=== PATIENT | male | born 1965 | race Caucasian/White ===

== ENCOUNTER 2022-08-05 06:10 | Day surgery (SDC) | payer OTHER, SELFPAY ==
--- NOTE | 2022-08-04 19:12 | W.ANESPRE ---
General Info Date of Service Date Performed: 08/05/22 Height: 5 ft 11 in Weight: 99.79 kg Body Mass Index (BMI): 30.7 Surgical Procedure: Operation Date: 08/05/22 07:40 Proposed Procedure Side Surgeon p Cholecystectomy Laparoscopic Janelle Serrano MD Meds Allergies and Home Medications Allergies Allergy/AdvReac Type Severity Reaction Status Date / Time No Known Allergies Allergy Unverified 08/05/22 06:50 Home Medication Medication Instructions Recorded acyclovir 200 mg capsule 200 mg PO DAILY PRN 07/24/22 celecoxib 200 mg capsule 200 mg PO DAILY 07/24/22 fluticasone furoate 50 1 - 2 inh inhalation DAILY 07/24/22 mcg/actuation blister powder for inhalation loratadine 10 mg tablet (Allergy 10 mg PO DAILY 07/24/22 Relief (loratadine)) omeprazole 20 mg capsule,delayed 20 mg PO DAILY 07/24/22 release tamsulosin 0.4 mg capsule 0.4 mg PO DAILY 07/24/22 rosuvastatin 10 mg tablet 10 mg PO DAILY 07/27/22 Current Visit Medications: Current Medications Generic Name Dose Route Start Last Admin Trade Name Freq PRN Reason Stop Dose Admin Acetaminophen 1,000 mg 08/05/22 06:00 Acetaminophen 500 Mg Tab PO 09/03/22 23:59 PREOP LUANA Celecoxib 200 mg 08/05/22 06:00 Celecoxib 200 Mg Cap PO 09/03/22 23:59 PREOP LUANA Gabapentin 600 mg 08/05/22 06:00 Gabapentin 300 Mg Cap PO 09/03/22 23:59 PREOP LUANA Ringer's Solution 1,000 mls @ 80 mls/hr 08/05/22 06:00 IV 09/03/22 23:59 INFUSION [facility] Ampicillin Sodium/Sulbactam 100 mls @ 200 mls/hr 08/05/22 06:00 Sodium 3 gm/ Sodium Chloride IVPB 08/05/22 18:00 PREOP [facility] IV Miscellaneous Supplies 1 each 08/05/22 06:00 Iv Access IV 09/03/22 23:59 DIRECTED LUANA Sodium Chloride 0 ml 08/05/22 06:00 Normal Saline Flush 10 Ml Syr IV 09/03/22 23:59 PRN PRN Sodium Chloride 0 ml 08/05/22 06:00 Normal Saline 10 Ml Vial IJ 06/22/23 23:59 DIRECTED PRN Sterile Water 0 ml 08/05/22 06:00 Water,Injection,Sterile 10 Ml Vial IJ 09/03/22 23:59 DIRECTED PRN PFSH Active Problems Active Problems: Problem Status Onset Code Right upper quadrant abdominal pain R10.11 REED (obstructive sleep apnea) G47.33 Biliary colic K80.50 Medical History Medical History (Updated 08/04/22 @ 10:50 by Jose Enrique Boudreaux) Allergic rhinitis Degenerative arthritis of spine Hyperlipidemia Knee pain Polyp, colonic PTSD (post-traumatic stress disorder) Per pt. states unexpected loud noises can be a potential trigger. Surgical History Surgical History History of colonoscopy (~06/17/22) 06/17/22 hyperplastic rectal polyp S/P meniscectomy Status post excision of lipoma Tobacco Smoking/Tobacco Use Status: Current-Occasional Tobacco Type: cigars Per week: 1 Smokeless tobacco user: other Alcohol Alcohol Intake: current Alcohol intake frequency: 0-2 drinks per day Substance Use Substance use: Never Substance use type: does not use Vital Signs and Lab Results Vital Signs Most Recent Vital Signs in EMR: Temp Pulse Resp BP Pulse Ox 35.6 C L 64 18 145/88 H 96 08/05/22 06:31 08/05/22 06:31 08/05/22 06:31 08/05/22 06:31 08/05/22 06:31 Lab Results Blood Type / Crossmatch: No Data to Display Complete Blood Count: No Data to Display Complete Metabolic Panel: No Data to Display Liver Function Panel: No Data to Display Coagulation Panel: No Data to Display Cardiac Panel: No Data to Display Arterial Blood Gas: No Data to Display Venous Blood Gas: No Data to Display Pancreas Panel: No Data to Display Thyroid Panel: No Data to Display Infectious Disease: No Data to Display Blood Cultures: No Data to Display Toxicology Panel: No Data to Display Anesthesia Assessment and Plan Anesthesia History Personal History: No History of Anesthesia Complications Family History: No Family History of Anesthesia Complications Exercise Tolerance Exercise Tolerance: Metabolic Equivalents>4 Cardiac & Pulmonary Exam Cardiac Exam: Normal S1/S2 Heart Sounds Pulmonary Exam: Clear Bilateral Breath Sounds Implantable Cardiac Device Does patient have a Pacemaker or an ICD?: No Airway Exam Known Difficult Airway: No Mallampati Class: 2 Mouth Opening: Normal (> 3cm) Thyromental Distance: Greater than 3 cm Neck Range of Motion: Full ROM Neck Circumference: Normal Teeth Condition: Normal Dentition ASA Classification ASA Score: ASA 2 Emergency Case?: No NPO Status NPO Status: NPO Clears >2 hours, Solids >8 hours Anesthesia Plan Resuscitation Status: Full Code Anesthesia Technique: General Anesthesia Airway Planned: Endotracheal Tube Monitors Used: Standard Monitors Preoperative Comments:: 57 yo male with biliary colic for lap abbey. Sig PMHx: REED, PTSD (loud noises trigger), occ cigar/etoh. Plan: GAETT, preop cocktail ordered by surgeon.
[2022-08-05] VITALS (12 sets, daily range): BP systolic 112–158; BP diastolic 74–98; PULSE 53–64; RESP 15–18; TEMP 35.6–36.8; O2SAT 92–96; BMI 30.7
[2022-08-05] MEDS: Gabapentin 300 MG CAP 600 MG PO (06:29)
[2022-08-05] MEDS: Celecoxib 200 MG CAP PO (06:29)
[2022-08-05] MEDS: Acetaminophen 500 MG TAB 1000 MG PO (06:29)
--- NOTE | 2022-08-05 06:45 | W.PM.PROGNOT ---
Date of Service Date of service: 08/05/22 Time of Service: 06:45 Assessment and Plan Assessment and plan (1) Biliary colic: Status: Acute Assessment and plan: I reviewed the risks, benefits and complications of the procedure again with the patient and his . He had a good understanding of the risks and the complications. Risks, benefits, complications were reviewed with the patient in the office. Complications include but are not limited to bleeding, infection, injury to stomach, small bowel and large bowel, injury to the pancreas, injury to the common bile duct necessitating drainage and referral to tertiary center for repair, bile leak, adverse reactions to the medications, complications of intubation including a sore throat or injury to the uvula, ID, stroke and even . Questions were entertained and answered to her satisfaction and she wished to proceed. No guarantees were given or implied. The patient wished to proceed with laparoscopic cholecystectomy. Subjective Subjective Interval history since last seen: I saw Rc in the same-day surgery area today. He is scheduled for a laparoscopic cholecystectomy. There has been no changes in his health since I saw him in the office. He is here with his Connie. Exam Const General: cooperative, comfortable and no acute distress Nutritional Appearance: overweight Orientation: alert and oriented x3 HENMT Head: normocephalic and atraumatic Resp Effort & Inspection: normal respiratory effort Cardio Rate: regular rate Rhythm: regular rhythm GI Inspection: normal to inspection Palpation: soft and nontender Objective Last Vital Signs Temp 96.1 F L 08/05/22 06:31 Pulse 64 08/05/22 06:31 Resp 18 08/05/22 06:31 BP 145/88 H 08/05/22 06:31 Pulse Ox 96 08/05/22 06:31 Time Spent with Patient Time Spent with Patient: <25 minutes Time was spent: other
[2022-08-05] MEDS: Lactated Ringers 1,000 ML 80 ML IV (06:46)
--- NOTE | 2022-08-05 06:49 | W.PM.OP ---
Date of service: 08/05/22 Time of Service: 08:22 Operative Note Operative Note DATE OF PROCEDURE: 08/05/22 PRE-OP DIAGNOSIS: Biliary Colic POST-OP DIAGNOSIS: same PROCEDURE: Laparoscopic Cholecystectomy SURGEON: Janelle Serrnao TABLE TENDER SLUDGE: Ryan Guaman ANESTHESIA TYPE: Local By Surgeon and General LMA/ETT Refer to Anesthesia Record PATHOLOGY: other (Gallbladder) COMPLICATIONS: None Patient was transported to: PACU Patient's condition: stable Indications: Mr. Rose is a very pleasant 57-year-old gentleman with a history and symptoms consistent with biliary colic.? We reviewed the anatomy of the biliary system as well as the pathophysiology of biliary colic.? We used a pamphlet with pictures to describe the surgery in detail including all of the possible complications.? Risks, benefits, complications were reviewed with the patient in the office.? Complications include but are not limited to bleeding, infection, injury to stomach, small bowel and large bowel, injury to the pancreas, injury to the common bile duct necessitating drainage and referral to tertiary center for repair, bile leak, adverse reactions to the medications, complications of intubation including a sore throat or injury to the uvula, IA, stroke and even .? 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 Questions were entertained and answered to his satisfaction.? He seemed to have a good understanding of the procedure as well as the possible complications? and he wished to proceed.? No guarantees were given or implied. Findings: Normal appearing Gallbladder Procedure Description: After informed consent was obtained the patient was brought to the operating room, placed in a supine position and monitors were applied. SCDs were applied to her lower extremities and he was placed under general anesthesia and intubated without difficulty. The abdomen was then prepped and draped in a sterile fashion using ChloraPrep. At this point a timeout was done and the patient's name, date of , procedure type, allergies to medications, metal in her body, antibiotic and DVT prophylaxis, and fire risk was assessed. Next 0.25% Bupivocaine was injected just above the umbilicus into the dermis and subcutaneous tissue. A 5 mm incision was made with an 11 blade. The skin next to the incision was grasped with penetrating towel clamps and while pulling up on the skin a 5 mm port was placed under direct visualization. The abdomen was insuflated. The bowel and mesentary was inspected for injury. No injury was noted. Next 3 more ports were placed. A 12 mm port was placed in the subxiphoid area and two 5 mm ports were placed in the right upper quadrant. The liver was inspected and looked normal. The patient's bed was then turned to the left and her head was brought up. The gallbladder was grasped at the body and pushed towards the right shoulder, this allowed me to visualize the neck of the gallbladder. The neck was grasped and pulled towards the right flank and down allowing me to visualize the lymph node. Using a [place] dissector with cautery the lymph node was gently dissected away from the tissues and the fatty tissue was also dissected away. The cystic duct was identified it was normal in size. The duct was dissected 360 degrees using the [place] dissector in order for me to visualize its entrance into the gallbladder. Liver was noted behind it. There were no other structures right behind. Critical view was achieved. 3 clips were placed one proximal and 2 distal and the cystic duct was cut. The cystic artery was then identified and dissected 360 degrees. It was located just medial to the cystic duct. It was visualized going into the gallbladder. Once dissected 3 more clips were placed one proximal and 2 distal and the artery was cut. Using the hook dissector the gallbladder was then dissected away from the liver bed and placed into an Endo Catch bag and pulled through the 12 mm port site. The 12 mm port was placed back into the abdomen under direct visualization. The liver bed was inspected. There was a small amount of bleeding was noted. The liver was cauterized. The abdomen was then irrigated with a liter of normal saline until the effluent was clear. Once all the fluid was suctioned out, the 12 mm and the 2 right upper quadrant ports were removed under direct visualization and no bleeding was noted from the fascia. The abdomen was deflated completely and lastly the umbilical port was removed. The skin was cleaned. The 12 mm port site fascia was closed with 0-vicryl. The dermis off all 4 incisions were closed with 4-0 Vicryl. The skin was dried and skin affix was applied over the closed incisions. Needle, instrument and sponge counts were correct at the end of the case. At this point the patient was woken up, extubated and taken back to recovery in stable condition. There were no immediate complications.
--- NOTE | 2022-08-05 06:50 | PDOC.DSDIS_ITS ---
Date of service: 08/05/22 Time of Service: 10:52 Discharge Plan Disposition Patient Disposition: Home Condition: Stable Discharge Details Reason For Visit: Laparoscopic Cholecystectomy Attending Provider: Janelle Serrano Primary Care Provider: Liss Short Home Meds and New Rx's Prescriptions: New tramadol 50 mg tablet 50 mg PO Q6H PRNQty: 14 0RF Continued acyclovir 200 mg capsule 200 mg PO DAILY PRN celecoxib 200 mg capsule 200 mg PO DAILY fluticasone furoate 50 mcg/actuation blister with device 1 - 2 inh inhalation DAILY loratadine [Allergy Relief (loratadine)] 10 mg tablet 10 mg PO DAILY omeprazole 20 mg capsule,delayed release(DR/EC) 20 mg PO DAILY tamsulosin 0.4 mg capsule 0.4 mg PO DAILY rosuvastatin 10 mg tablet 10 mg PO DAILY Rx Instructions: 5mg every other day - per pt Discharge Instructions Instructions: Laparoscopic Cholecystectomy (DC) Additional Instructions: Activity at Home after surgery: 1. Make sure you walk outside at least 4 times per day 2. You should be able to climb a flight of stairs 3. No driving while in pain or taking pain medications 4. No strenuous activity or heavy lifting for 2 weeks (laparoscopic surgery) Diet, Nutrition, & wound healin. Avoid alcohol until after you are recovered from your surgery 2. Make sure to eat plenty of lean protein (meat, fish, eggs, cottage cheese, beans) 3. Eat a variety of fruits and vegetables. Eat plenty of high fiber foods to avoid constipation. 4. Drink plenty of liquids to stay hydrated and avoid constipation Pain Medications: 1. Tylenol 650mg every 6 hours as needed and Ibuprofen 600 mg every 6 hours as needed. You may alternate between the 2 medications every 3 hours 2. If a narcotic has been prescribed take as directed only for breakthrough pain For Constipation: 1. Take Milk of Magnesia or MiraLax as needed for constipation Other: 1. You may shower daily. Do not scrub the incisions 2. Do not soak the incisions for 1 week 3. You may alternate ice and heat as needed for pain and swelling Wound Care: 1. Keep the incisions clean and dry Please call our office if you develop: 1. Fevers >101.5 2. Nausea or Vomiting 3. Worsening pain 4. Redness and thick discharge from the wounds If after hours please call the Hospital at and ask to speak to the on-call surgeon Stand Alone Forms: Anesthesia Discharge InstNeela Mann (DSU) Referrals: Janelle Serrano MD [ [facility] STAFF PHYSICIAN] - Activity:: as above Shower/Bathe:: 24 hours Diet:: low fat Discharge Orders Discharge Orders: Discharge Order (Routine); Ordered 08/05/22 Ordered By: Janelle Serrano DS: Diagnosis Discharge Diagnosis (1) Biliary colic: Status: Acute Asessment and Plan: The patient is doing well post-op from their Laparoscopic Cholecystectomy surgery.? They are having no nausea or vomiting. They are tolerating liquids and a snack. The pt is not having any chest pain or SOB.? Their pain is adequately controlled. They have been able to urinate.? ?HEENT:? no eye pain/drainage/redness/swelling. Mild sore throat ?Cardio- NSR, no chest pain, BP stable- see VS record ?Pulm: no sob or productive cough. No hemoptysis ?Incision- dressing is c/d/i w/ no excessive bleeding or drainage ?I discussed with the patient the findings at the time of surgery and the patient?s progress. ?We reviewed expectations at home; what the patient could expect for recovery time, and in the post-operative period.? We discussed the importance of walking to avoid blood clots and pneumonia.? We discussed and reviewed the patient's post-operative wound care and dressing needs.?? We reviewed their step-de la garza pain management plan, Rx called to the pharmacy of their choice.? We reviewed activity and limitations-see discharge instructions. We reviewed warning signs, and when to seek medical attention- see d/c instructions.?? Patient was given a postoperative follow-up appointment. Patient verbalized understanding of their postoperative instructions, how do to take care of themselves and their incision, and the pain management plan. Please see discharge instructions.?
--- NOTE | 2022-08-05 06:52 | W.ANESPRE ---
General Info Date of Service Date Performed: 08/05/22 Height: 5 ft 11 in Weight: 100 kg Body Mass Index (BMI): 30.7 Surgical Procedure: Operation Date: 08/05/22 07:40 Proposed Procedure Side Surgeon p Cholecystectomy Laparoscopic Janelle Serrano MD Meds Allergies and Home Medications Allergies Allergy/AdvReac Type Severity Reaction Status Date / Time No Known Allergies Allergy Unverified 08/05/22 06:50 Home Medication Medication Instructions Recorded acyclovir 200 mg capsule 200 mg PO DAILY PRN 07/24/22 celecoxib 200 mg capsule 200 mg PO DAILY 07/24/22 fluticasone furoate 50 1 - 2 inh inhalation DAILY 07/24/22 mcg/actuation blister powder for inhalation loratadine 10 mg tablet (Allergy 10 mg PO DAILY 07/24/22 Relief (loratadine)) omeprazole 20 mg capsule,delayed 20 mg PO DAILY 07/24/22 release tamsulosin 0.4 mg capsule 0.4 mg PO DAILY 07/24/22 rosuvastatin 10 mg tablet 10 mg PO DAILY 07/27/22 Current Visit Medications: Current Medications Generic Name Dose Route Start Last Admin Trade Name Freq PRN Reason Stop Dose Admin Acetaminophen 1,000 mg 08/05/22 06:00 08/05/22 06:29 Acetaminophen 500 Mg Tab PO 09/03/22 23:59 1,000 mg PREOP LUANA Administration Celecoxib 200 mg 08/05/22 06:00 08/05/22 06:29 Celecoxib 200 Mg Cap PO 09/03/22 23:59 200 mg PREOP LUANA Administration Gabapentin 600 mg 08/05/22 06:00 08/05/22 06:29 Gabapentin 300 Mg Cap PO 09/03/22 23:59 600 mg PREOP LUANA Administration Ringer's Solution 1,000 mls @ 80 mls/hr 08/05/22 06:00 08/05/22 06:46 IV 09/03/22 23:59 80 mls/hr INFUSION LUANA Administration Ampicillin Sodium/Sulbactam 100 mls @ 200 mls/hr 08/05/22 06:00 Sodium 3 gm/ Sodium Chloride IVPB 08/05/22 18:00 PREOP LUANA IV Miscellaneous Supplies 1 each 08/05/22 06:00 Iv Access IV 09/03/22 23:59 DIRECTED LUANA Sodium Chloride 0 ml 08/05/22 06:00 Normal Saline Flush 10 Ml Syr IV 09/03/22 23:59 PRN PRN Sodium Chloride 0 ml 08/05/22 06:00 Normal Saline 10 Ml Vial IJ 09/03/22 23:59 DIRECTED PRN Sterile Water 0 ml 08/05/22 06:00 Water,Injection,Sterile 10 Ml Vial IJ 09/03/22 23:59 DIRECTED PRN PFSH Active Problems Active Problems: Problem Status Onset Code Right upper quadrant abdominal pain R10.11 REED (obstructive sleep apnea) G47.33 Biliary colic K80.50 Medical History Medical History Allergic rhinitis Degenerative arthritis of spine Hyperlipidemia Knee pain Polyp, colonic PTSD (post-traumatic stress disorder) Per pt. states unexpected loud noises can be a potential trigger. Surgical History Surgical History History of colonoscopy (~06/17/22) 06/17/22 hyperplastic rectal polyp S/P meniscectomy Status post excision of lipoma Tobacco Smoking/Tobacco Use Status: Current-Occasional Tobacco Type: cigars Per week: 1 Smokeless tobacco user: other Alcohol Alcohol Intake: current Alcohol intake frequency: 0-2 drinks per day Substance Use Substance use: Never Substance use type: does not use Vital Signs and Lab Results Vital Signs Most Recent Vital Signs in EMR: Most Recent Vital Signs Temp Pulse Resp BP Pulse Ox 35.6 C L 64 18 145/88 H 96 08/05/22 06:31 08/05/22 06:31 08/05/22 06:31 08/05/22 06:31 08/05/22 06:31 Lab Results Blood Type / Crossmatch: No Data to Display Complete Blood Count: No Data to Display Complete Metabolic Panel: No Data to Display Liver Function Panel: No Data to Display Coagulation Panel: No Data to Display Cardiac Panel: No Data to Display Arterial Blood Gas: No Data to Display Venous Blood Gas: No Data to Display Pancreas Panel: No Data to Display Thyroid Panel: No Data to Display Infectious Disease: No Data to Display Blood Cultures: No Data to Display Toxicology Panel: No Data to Display Anesthesia Assessment and Plan Anesthesia History Personal History: No History of Anesthesia Complications Family History: No Family History of Anesthesia Complications Implantable Cardiac Device Does patient have a Pacemaker or an ICD?: No
[2022-08-05] MEDS: AMPICILLIN/SULBACTAM 3 GM in Normal Saline 100 ML IVPB (07:35)
[2022-08-05] MEDS: Bupivacaine 0.25% Pres-Free 30 ML VIAL (08:00)
--- NOTE | 2022-08-05 08:07 | GB_PTH ---
PATIENT: Rc Rose LOC: [facility] U#:[id number] AGE/SX: 57/M ROOM: RE08/05/[address]: Janelle Serrano MD : 1965 BED: DIS: 08/05/2022 SPEC #: [id number] RECD: 08/05/22 12:36 STATUS: PETRA REMary #: [id number] MARLEY: 08/05/22 08:[address]: Janelle Serrano DEPT: Surgical Specimen RECD BY: Evelin Farooq ENTERED: 08/05/22 12:37 SP TYPE: GB OTHR DR: Liss Short Tissues: 1 - GALLBLADDER Procedures: GROSS AND MICRO LEVEL 3 Comments: [id number]
[2022-08-05] MEDS: Normal Saline 10 ML VIAL IJ (09:09)
[2022-08-05] MEDS: HYDROmorphone 2 MG/ML SYR IVP ×2 (09:09→09:19)
--- NOTE | 2022-08-05 09:13 | W.ANESPOSTOP ---
Postoperative Evaluation Date, Time and Location Date Performed: 08/05/22 Time Performed: 09:14 Patient Location: PACU Vital Signs Most Recent Imported Vital Signs: Most Recent Vital Signs Temp Pulse Resp BP Pulse Ox 36.7 C 60 16 132/88 93 08/05/22 08:45 08/05/22 08:45 08/05/22 08:45 08/05/22 08:45 08/05/22 08:45 Pain Score Most Recent Pain Score: Most Recent Pain Score Pain Level 2 08/05/22 08:45 Assessment Mental Status: Awake (Alert & Oriented to Patient Baseline) Airway and Respiratory Function: Patent airway with normal (patient baseline) respiratory exam Cardiovascular Function: Hemodynamically Stable Hydration Status: Adequately Hydrated Nausea & Vomiting: No Nausea or Vomiting Pain: Pain is tolerable per patient Peripheral Nerve Block: Patient did not receive a nerve block
[2022-08-05] MEDS: traMADol 50 MG TAB PO (10:32)
== END 2022-08-05 11:00 | disposition home or self-care (01) ==
PROVIDERS: PCP Nurse Practitioner Adult Health; Visit Provider Surgery
PROC: 0FT44ZZ Resection of Gallbladder, Percutaneous Endoscopic Approach (ICD-10-PCS; CPT 47562; principal; 2022-08-05 07:30)
DX: K80.44 Calculus of bile duct with chronic cholecystitis without obstruction (principal)
CPT/HCPCS: 47562; 88304; J0295; J1100; J1170; J2001; J2405; J2704; J3475

== ENCOUNTER 2024-11-20 10:04 | Outpatient (CLI) | payer OTHER, SELFPAY ==
--- NOTE | 2024-11-20 09:00 | DI.RAD_ITS ---
Exam(s) XR KNEE RT 4V AP,LAT,ROSEMARY,PAT EXAM: XR KNEE RT 4V AP,LAT,ROSEMARY,PAT CLINICAL HISTORY: RIGHT KNEE PAIN. TECHNIQUE: 2D digital imaging was performed. Three views. COMPARISON: No exams were available for comparison FINDINGS: BONES: No acute fracture is present. No bony destructive lesion is seen. JOINTS: There is severe narrowing of the lateral femoral tibial joint space and prominent periarticular spurring. There is widening of the medial femoral tibial joint space and valgus angulation at the knee. There is also spurring from the patellofemoral joint which is maintained. No joint effusion is seen. SOFT TISSUE: Normal. 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 DATA REPOSITORY: RADIATION DOSE DELIVERED:
== END 2024-11-20 10:05 | disposition home or self-care (01) ==
LOC: DIORS 10:04
PROVIDERS: PCP Nurse Practitioner Adult Health; Referring Provider Nurse Practitioner Adult Health; Visit Provider Student in an Organized Health Care Education/Training Program
DX: M25.561 Pain in right knee (principal); M17.11 Unilateral primary osteoarthritis, right knee
CPT/HCPCS: 99213; 20610; J1010; 73564

== ENCOUNTER → 2025-02-26 13:10 | Outpatient (BNVA) | payer OTHER, SELFPAY | PROVIDERS: PCP Nurse Practitioner Adult Health; Referring Provider Nurse Practitioner Adult Health; Visit Provider Physician Assistant | DX: M17.11 Unilateral primary osteoarthritis, right knee (principal) | CPT/HCPCS: 20610; J1010 ==